=== PATIENT | male | born 1995 | race African-American/Black ===

== ENCOUNTER 2017-02-09 22:35 | Emergency (ER) | payer SELFPAY ==
[~2017-02-09] VITALS: Ht 170.2 cm; Wt 61.2 kg
[2017-02-09 22:40] VITALS: BP 112/70
[2017-02-09] MEDS ORDERED: NKM (22:44)
[2017-02-10 00:24] VITALS: BP 111/78
[2017-02-10] MEDS ORDERED: KEFLEX500 MG ORAL (00:35)
--- NOTE | 2017-02-10 00:35 | Emergency Room Report ---
History of Present Illness General Chief Complaint: Laceration Source: Patient Present Illness HPI Is a 21-year-old male who is right-hand dominant. He presents with chief complaint of laceration to his right arm. He said that he was carrying a large mirror and it broke and sustained a laceration to the arm. This occurred yesterday. He did not want to come in. His sister brought him here. No pain. No nausea no vomiting. No redness. Allergies: Coded Allergies: No Known Allergies (Unverified , 02/09/17) Patient History Past Medical History: none, see triage record, old chart reviewed Past Surgical History: none Pertinent Family History: none Social History: Reports: smoking Immunizations: UTD Reviewed Nursing Documentation: PMH: Agreed, PSxH: Agreed Nursing Documentation-PMH Past Medical History: No Stated History Review of Systems Eye: Denies: eye pain, blurred vision ENT: Denies: ear pain, nose congestion, throat swelling Respiratory: Denies: cough, shortness of breath Cardiovascular: Denies: chest pain, palpitations Gastrointestinal: Denies: abdominal pain, diarrhea, nausea, vomiting Musculoskeletal: Denies: back pain, joint pain Skin: Denies: rash Neurological: Denies: headache, numbness Endocrine: Denies: increased thirst, increased urine Hematologic/Lymphatic: Denies: easy bruising All Other Systems: negative except mentioned in HPI Physical Exam Vital Signs Date Time Temp Pulse Resp B/P (MAP) Pulse Ox O2 Delivery O2 Flow Rate FiO2 02/09/17 22:40 98.0 72 20 112/70 100 Room Air vitals normal Sp02 EP Interpretation: reviewed, normal General Appearance: well appearing, no apparent distress, alert Head: normocephalic, atraumatic Eyes: bilateral eye PERRL, bilateral eye EOMI ENT: hearing grossly normal, normal pharynx Neck: full range of motion, supple, no meningismus Respiratory: chest non-tender, lungs clear, normal breath sounds Cardiovascular #1: regular rate, rhythm, no murmur Gastrointestinal: normal bowel sounds, non tender, no mass, no organomegaly, no bruit, non-distended Musculoskeletal: back normal, gait/station normal, normal range of motion, other - Right forearm: Large 8 cm laceration with a flap. No Foreign body or tendon laceration. Psychiatric: mood/affect normal Skin: warm/dry Procedures Laceration/Wound Repair Laceration/Wound Repair : Consent: Verbal Wound Location: upper extremity Wound's Depth, Shape: irregular, flap, stellate, contused tissue Wound Length (cm): 8 Wound Explored: clean Irrigated w/ Saline (ccs): 1999 Betadine Prep?: Yes Anesthesia: 1% Lidocaine Volume Anesthetic (ccs): 10 Wound Debrided: minimal Wound Repaired With: sutures Suture Size/Type: 3:0, proline Number of Sutures: 10 Sterile Dressing Applied?: Yes Medical Decision Making Diagnostic Impression: Primary Impression: Laceration of right forearm Qualified Codes: S51.811A - Laceration without foreign body of right forearm, initial encounter ER Course Patient presents with foreign laceration. Even though his been over 24 hour, the wound clean. However this does increase his risk of infection. Explained this to mom. We'll put on antibiotics. Last Vital Signs Date Time Temp Pulse Resp B/P (MAP) Pulse Ox O2 Delivery O2 Flow Rate FiO2 02/10/17 00:24 89 14 111/78 97 Room Air 02/09/17 22:41 97.3 Status: improved Disposition: HOME, SELF-CARE Condition: Stable Scripts Cephalexin* (KEFLEX*) 500 Mg Capsule 500 MG ORAL TID, #21 CAP 0 Refills Prov: THELMA GHOSH M.D. 02/10/17 Referrals: NOT CHOSEN [facility]/,REFERRING (PCP) Patient Instructions: Laceration Care, Adult Additional Instructions: Followup with your DrLewis in 7 days for recheck. Sutures out in 10-14 days. Return if worse. Keep wound clean. THELMA GHOSH M.D. Feb 10, 2017 00:35
[2017-02-10 00:39] VITALS: BP 111/78
== END 2017-02-10 00:44 | disposition home or self-care (01) ==
LOC: EMR 23:05
DX: S51.811A Laceration without foreign body of right forearm, initial encounter (principal); W25.XXXA Contact with sharp glass, initial encounter; Y93.9 Activity, unspecified; Y99.9 Unspecified external cause status; Z87.891 Personal history of nicotine dependence
CPT/HCPCS: 99283